=== PATIENT | male | born 1940 | race Caucasian/White ===

== ENCOUNTER 2023-11-11 14:36 | Emergency (ER) | payer OTHER, SELFPAY ==
[2023-11-11 14:43] VITALS: BP 149/56
[2023-11-11 15:02] LABS: % Basophils 0.8 % (0-2); % Eosinophils 11.7 % (0-6); % Immature Granulocytes 0.4 % (0-0.5); % Lymphocytes 21.2 % (20.5-51.1); % Monocytes 9.9 % (1.7-9.3); Absolute Basophils 0.1 10^3/uL (0-0.2); Absolute Eosinophils 0.9 10^3/uL (0-0.7); Absolute Lymphocytes 1.6 10^3/uL (1.2-3.4); Absolute Monocytes 0.8 10^3/uL (0.1-0.6); Absolute Neutrophils 4.3 10^3/uL (1.4-6.5); Hematocrit 31.7 % (39.0-52.0); Hemoglobin 11.2 g/dL (13.0-18.0); Mean Corp Hgb Conc. 35.3 g/dL (33.0-37.0); Mean Corpuscular Hgb 32.2 pg (27.0-31.0); Mean Corpuscular Volume 91.1 fL (80.0-94.0); Mean Platelet Volume 11.1 fL (7.4-10.4); Nucleated Red Blood Cells % 0 % (-); Platelet Count 153 10^3/uL (130-400); Red Blood Cell Count 3.48 10^6/uL (4.70-6.10); Red Cell Dist. Width 13.5 % (11.5-14.5); White Blood Cell Count 7.6 10^3/uL (4.8-10.8)
[2023-11-11 15:16] LABS: INR 1.04; PT 13.6 Sec (11.4-14.6)
[2023-11-11 15:45] VITALS: BMI 27.8
[2023-11-11 15:48] VITALS: BP 173/63
[2023-11-11 15:52] LABS: ALT (SGPT) 16 U/L (0-50); AST (SGOT) 30 U/L (17-59); Albumin 3.7 g/dl (3.5-5.0); Alkaline Phosphatase 90 U/L (38-126); Blood Urea Nitrogen 20 mg/dl (9-20); Calcium 9.2 mg/dl (8.4-10.2); Carbon Dioxide 19 mmol/L (22-30); Chloride 109 mmol/L (98-107); Estimated Creatinine Clearance 50 ml/min; Glucose 98 mg/dl (70-99); Potassium 4.5 mmol/L (3.5-5.1); Sodium 135 mmol/L (135-145); Total Bilirubin 0.6 mg/dl (0.2-1.3); Total Protein 6.1 g/dl (6.3-8.2); eGFR > 60.00
[2023-11-11 16:00] VITALS: BP 157/63
--- NOTE | 2023-11-11 16:09 | ED.GENMED ---
History of Present Illness
General
Chief Complaint: Breathing Problem
Source: patient
Time Seen by Provider: 11/11/23 15:45
History of Present Illness
History of Present Illness:
83-year-old male with past medical history of COPD, hypertension, hyperlipidemia, currently on Keytruda for lung cancer, history of PE (patient states this was from surgical procedure) presenting to the emergency department for evaluation at the
request of his him analyst for evaluation after for the last week patient has been experiencing left-sided chest pain with deep inspiration. Patient states that he also feels short of breath but notes that this is a chronic shortness of breath and
not any different than his usual and attributes this to his COPD. There are no other new symptoms including fevers or infectious symptoms, cough, hemoptysis, lower extremity edema or pain, orthopnea, PND or any other concerns. Patient has not
attempted any medications for relief. Notes that he will chronically wear oxygen at nighttime only.
Past History
Past History
ED Past Medical History: Cancer (Lung and skin), COPD, HTN, Hypercholesterolemia, Other (disc disease) and Other (Thoracic spine postop abscess with osteomyelitis, Sciatica, Headache, PNA, Sleep apnea, Palpitations, renal calculus, )
ED Past Surgical History: Orthopedic (Laminectomy), Urological (TURP) and Other (Deviated septum)
Patient has exhibited threatening behavior?: No
PSI?: No
Social History
Tobacco: Former smoker
Alcohol: None
Drug: None
Personal:
Living: with family
Employment: Retired
Family History
Family History: Other (Noncontributory)
Review of Systems
Review of Systems
All Other Systems: ROS reviewed and negative except as documented in HPI and ROS
Phy Exam
Physical Exam
Physical Exam:
GENERAL: Alert , in no apparent distress
EYE: conjunctiva clear
NECK: Supple
ENT: o/p clr, mmm.
CARDIAC: Regular rate and rhythm, systolic murmur at the left sternal border
LUNGS: Clear breath sounds bilaterally, no acute respiratory distress, no wheezes/rales/rhonchi
NEUROLOGICAL: Alert and oriented
SKIN: Warm and dry, skin intact.
MUSCULOSKELETAL: well perfused. No edema or tenderness to the lower extremities bilateral
PSYCH: Normal and appropriate interaction.
Scores
Heart Failure Risk
Heart Failure Risk Score: Not Applicable
Heart Score for Chest Pain Patients
STEMI patient?: No
History: Slightly or Non-Suspicious
ECG: Nonspecific Repolarization
Age: >/= 65 years
Risk Factors: 1 or 2 Risk Factors
Troponin: </= Normal Limit
Heart Score for Chest Pain Patients: 4
Heart Score Risk: 20.3% MACE over next 6 weeks
Withdrawal Assessment of Alcohol
Withdrawal Assessment Completed?: Not applicable
Course
Orders/Labs/Results
Orders:
Orders
11/11/23 14:45
Electrocardiogram (*1) Urgent
Reason for Study: Chest Pain
EKG- Treatment ONCE
11/11/23 14:51
Complete Blood Count/With Diff Urgent
Comprehensive Metabolic Panel Urgent
Prothrombin Time Urgent
Troponin I Routine
11/11/23 15:45
CT Chest Pe Study Urgent
Comment:
Reason For Exam: SOB, pleurisy
Abnormal Lab Results
11/11/23
14:51
RBC 3.48 L 10^6/uL
(4.70-6.10)
Hgb 11.2 L g/dL
(13.0-18.0)
Hct 31.7 L %
(39.0-52.0)
MCH 32.2 H pg
(27.0-31.0)
MPV 11.1 H fL
(7.4-10.4)
Absolute Monos (auto) 0.8 H 10^3/uL
(0.1-0.6)
Absolute Eos (auto) 0.9 H 10^3/uL
(0-0.7)
Monocytes % 9.9 H %
(1.7-9.3)
Eosinophils % 11.7 H %
(0-6)
Chloride 109 H mmol/L
(98-107)
Carbon Dioxide 19 L mmol/L
(22-30)
Total Protein 6.1 L g/dl
(6.3-8.2)
11/11/23 14:51
11/11/23 14:51
Vital Signs
Initial and Last Documented VS:
Initial Vital Signs
Temp Pulse Resp BP Pulse Ox
98.5 F 66 18 149/56 93
11/11/23 14:43 11/11/23 14:43 11/11/23 14:43 11/11/23 14:43 11/11/23 14:43
Last Documented Vital Signs
Temp Pulse Resp BP Pulse Ox
98.5 F 70 18 168/74 89
11/11/23 14:43 11/11/23 17:30 11/11/23 17:30 11/11/23 17:07 11/11/23 17:30
MDM/Problems Addressed
Differential Diagnosis Includes:
Pleurisy, PE, worsening COPD, pneumonia, atypical ACS presentation
MDM/Problems Addressed:
83-year-old male with multiple cardiopulmonary conditions as part of his past medical history presenting to the ER from his him analyst office for evaluation of continuous left-sided pleurisy for the last week. Patient notes chronic shortness of
breath secondary to what he reports is COPD and states that it is not any worse now than normal. He is hemodynamically stable, speaking in full sentences and in no acute respiratory distress. Labs were initiated in triage. CT scan of the chest
ordered. Patient's EKG is unchanged from last in February 2022.
Chronic conditions affecting care: COPD
*Radiology
Radiology exam reviewed: radiology read reviewed
*Pulse Oximetry
Patient hypoxic: no
*EKG
Interpreted by ED Provider?: Yes
Comparison EKG: no changes
Heart Rate: 70
Rate: normal
Rhythm: sinus
QRS Pattern: other (Bifascicular block)
*Underwriting Technician Interpretation
Rate: normal
Rhythm: sinus
*Critical Care Note
Total Time (30-74mins, 75-104mins- exclusive of procedures): Not Applicable
Data Reviewed
Review of Other/Old Records Reveals: Labs and Records
Patient Management
Escalation/DeEscalation of care consider admission/obs:
Patient CT shows the following:
IMPRESSION: Examination is negative for pulmonary embolism.
There is a focal masslike opacity in the anterior aspect of the left upper lobe lung, increased in size from previous examination, and suspicious for neoplasia/malignancy.
2 cm left adrenal gland mass which is new since examination 2021, and raises concern for ischemic disease.
Low-density hepatic lesions, most likely cysts, but not definitively characterize.
As warranted, consideration for further evaluation with PET/CT examination
I reviewed these findings with the patient and provided him with a printout of the report. Patient strongly encouraged to follow-up with his oncologist as soon as possible. Patient was aware of the adrenal gland mass and was scheduled to undergo
biopsy of this in the near future. I have attempted to contact both patient's him analyst who sent him to the ER as well as his oncologist and left messages with the answering service however no call was returned. Patient is stable for discharge
home and aware of return to the ER otherwise.
ED Attending Note
-
Portions of this chart may have been created with voice recognition software.� Occasional wrong word or��sound alike� substitutions may have occurred due to the inherent limitations of voice recognition software.
Discharge Plan
Departure
Patient Disposition: Home (Routine Discharge)
Date of Disposition: 11/11/23
Time of Disposition: 17:31
Patient with high blood pressure during this ER visit?: Yes
Discharge Problem:
Mass of left lung, Adrenal mass, left
Instructions: Lung cancer
Prescriptions:
No Action
multivitamin with folic acid [Tab-A-Cathleen] 1 TABLET tablet
1 tab PO QPM
finasteride 5 MG tablet
5 mg PO QPM
rosuvastatin 20 MG tablet
20 mg PO DAILY
hydralazine 25 MG tablet
50 mg PO TID
doxazosin 4 MG tablet
4 mg PO QPM
mirtazapine 15 MG tablet
15 mg PO HS
vitamin B complex Capsule
1 cap PO DAILY Qty: 0
omeprazole magnesium [Prilosec OTC] 20 MG tablet,delayed release (DR/EC)
20 mg PO DAILY
L.acidoph, paracasei,B. lactis 1 EACH capsule
1 ea PO DAILY
duloxetine 20 MG capsule,delayed release(DR/EC)
20 mg PO HS
cholecalciferol (vitamin D3) 1,000 UNITS tablet
1,000 units PO DAILY
potassium chloride 10 MEQ capsule, extended release
10 meq PO DAILY
Eliquis 5 MG tablet
2.5 mg PO BID 30 Days Qty: 30 0RF
ascorbic acid (vitamin C) [Vitamin C] 500 mg Tablet
500 mg PO DAILY
ferrous sulfate 325 mg (65 mg iron) Tablet
325 mg PO DAILY
montelukast [Singulair] 10 mg Tablet
10 mg PO DAILY
quinapril 20 mg Tablet
20 mg PO DAILY
Stiolto Respimat 2.5-2.5 mcg/actuation mist
2 inh INHALATION R DAILY
guaifenesin [Mucinex] 600 mg Tablet Extended Release 12hr
600 mg PO Q12 Qty: 30 0RF
azithromycin 250 mg Tablet
500 mg PO DAILY Qty: 3 0RF
prednisone 10 mg tablet
40 mg PO DAILY Qty: 30 0RF
Rx Instructions:
40mg for 3 days
30mg for 3 days
20mg for 3 days
10mg for 3 days and stop
levofloxacin 500 mg tablet
500 mg PO DAILY 9 Days Qty: 9 0RF
Referrals:
Dominic Yuan, DO [Family Provider] -
Interventions
Interventions:
*Risk Screen - Suicide Last Done: 11/11/23 14:43
*General Assessment Last Done: 11/11/23 14:43
*Neglect/Abuse Screening Last Done: 11/11/23 14:43
ED- Fall Risk Assessment Last Done: 11/11/23 16:02
*ED COVID-19 Vaccine History Last Done: 11/11/23 14:43
*Nursing Disposition Last Done: 11/11/23 17:56
ED- Cardiac Assessment Last Done: 11/11/23 16:02
ED- Pulmonary Assessment Last Done: 11/11/23 16:02
Discharge Date and Time
Discharge Date/Time: 11/11/23 17:59
Print Language: BELGIAN
[2023-11-11 16:32] LABS: Troponin I < 0.012 ng/ml
[2023-11-11 17:07] VITALS: BP 168/74
== END 2023-11-11 17:59 | disposition home or self-care (01) ==
LOC: EMR 14:36
PROVIDERS: EMERGENCY PHYSICIAN Emergency Medicine; FAMILY PHYSICIAN Internal Medicine
DX: R91.8 Other nonspecific abnormal finding of lung field (principal); E27.9 Disorder of adrenal gland, unspecified; J44.9 Chronic obstructive pulmonary disease, unspecified; I10 Essential (primary) hypertension; E78.00 Pure hypercholesterolemia, unspecified; Z86.711 Personal history of pulmonary embolism; G47.30 Sleep apnea, unspecified; C34.90 Malignant neoplasm of unspecified part of unspecified bronchus or lung; Z87.442 Personal history of urinary calculi; Z87.891 Personal history of nicotine dependence
CPT/HCPCS: 99284; 71275; 80053; 84484; 85025; 85610; 93005; Q9967

== ENCOUNTER → 2024-04-18 06:38 | Outpatient (REF) | payer OTHER, SELFPAY ==
[2024-04-18 10:20] LABS: ALT (SGPT) 17 U/L (0-50); AST (SGOT) 22 U/L (17-59); Albumin 3.1 g/dl (3.5-5.0); Alkaline Phosphatase 88 U/L (38-126); Blood Urea Nitrogen 16 mg/dl (9-20); Calcium 8.7 mg/dl (8.4-10.2); Carbon Dioxide 24 mmol/L (22-30); Chloride 103 mmol/L (98-107); Glucose 101 mg/dl (70-99); HDL Cholesterol 56 mg/dl; LDL Cholesterol, Calculated 66 mg/dl; Sodium 134 mmol/L (135-145); Total Cholesterol 142 mg/dl (50-199); Total Protein 5.5 g/dl (6.3-8.2); Triglyceride 101 mg/dl (10-149); Very Low Density Lipoprotein 20 mg/dl (0-30); eGFR > 60.00
[2024-04-18 10:49] LABS: TSH Reflex To Free T4 1.63 uIU/ml (0.47-4.68)
[2024-04-18 11:21] LABS: Glycohemoglobin (HgbA1c) 5.4 % (4.0-5.6)
== END ==
LOC: HWLAB 06:38
PROVIDERS: ATTENDING PHYSICIAN Internal Medicine
DX: E78.2 Mixed hyperlipidemia (principal); E03.8 Other specified hypothyroidism; R73.9 Hyperglycemia, unspecified
CPT/HCPCS: 36415; 80053; 80061; 83036; 84443

== ENCOUNTER → 2024-06-16 07:01 | Outpatient (REF) | payer OTHER, MEDICARE, SELFPAY | LOC: HWRCS 07:01 | PROVIDERS: ATTENDING PHYSICIAN Internal Medicine | DX: I11.9 Hypertensive heart disease without heart failure (principal); R60.0 Localized edema; C34.90 Malignant neoplasm of unspecified part of unspecified bronchus or lung | CPT/HCPCS: 93306; 93970 ==

== ENCOUNTER → 2024-07-04 06:59 | Outpatient (REF) | payer OTHER, SELFPAY ==
[2024-07-04 09:58] LABS: Albumin 2.6 g/dl (3.5-5.0); Blood Urea Nitrogen 19 mg/dl (9-20); Calcium 8.4 mg/dl (8.4-10.2); Carbon Dioxide 27 mmol/L (22-30); Chloride 108 mmol/L (98-107); Glucose 126 mg/dl (70-99); Phosphorus 2.9 mg/dl (2.5-4.5); Sodium 140 mmol/L (135-145); eGFR > 60.00
== END ==
LOC: HWLAB 06:59
PROVIDERS: ATTENDING PHYSICIAN Internal Medicine
DX: R60.0 Localized edema (principal)
CPT/HCPCS: 36415; 80069

== ENCOUNTER → 2024-11-18 06:14 | Outpatient (REF) | payer OTHER, SELFPAY ==
[2024-11-18 09:01] LABS: Hematocrit 37.3 % (39.0-52.0); Hemoglobin 12.3 g/dL (13.0-18.0); Mean Corp Hgb Conc. 33.0 g/dL (33.0-37.0); Mean Corpuscular Volume 96.9 fL (80.0-94.0); Nucleated Red Blood Cells % 0 % (-); Platelet Count 141 10^3/uL (130-400); Red Cell Dist. Width 13.0 % (11.5-14.5)
[2024-11-18 09:02] LABS: ALT (SGPT) 19 U/L (0-50); AST (SGOT) 21 U/L (17-59); Albumin 3.9 g/dl (3.5-5.0); Alkaline Phosphatase 86 U/L (38-126); Blood Urea Nitrogen 20 mg/dl (9-20); Calcium 9.5 mg/dl (8.4-10.2); Carbon Dioxide 28 mmol/L (22-30); Chloride 108 mmol/L (98-107); Glucose 83 mg/dl (70-99); HDL Cholesterol 58 mg/dl; LDL Cholesterol, Calculated 71 mg/dl; Potassium 4.5 mmol/L (3.5-5.1); Sodium 141 mmol/L (135-145); Total Protein 6.7 g/dl (6.3-8.2); Very Low Density Lipoprotein 15 mg/dl (0-30); eGFR > 60.00
[2024-11-18 09:18] LABS: Glycohemoglobin (HgbA1c) 5.5 % (4.0-5.6)
== END ==
LOC: HWLAB 06:14
PROVIDERS: ATTENDING PHYSICIAN Internal Medicine Cardiovascular Disease; FAMILY PHYSICIAN Internal Medicine
DX: E78.49 Other hyperlipidemia (principal); E78.2 Mixed hyperlipidemia; Z13.1 Encounter for screening for diabetes mellitus; I11.9 Hypertensive heart disease without heart failure
CPT/HCPCS: 36415; 80053; 80061; 83036; 85025

== ENCOUNTER → 2025-02-17 06:45 | Outpatient (REF) | payer OTHER, SELFPAY ==
[2025-02-17 10:10] LABS: Hematocrit 38.0 % (39.0-52.0); Hemoglobin 12.5 g/dL (13.0-18.0); Mean Corp Hgb Conc. 32.9 g/dL (33.0-37.0); Mean Corpuscular Volume 96.9 fL (80.0-94.0); Nucleated Red Blood Cells % 0 % (-); Platelet Count 160 10^3/uL (130-400); Red Cell Dist. Width 13.8 % (11.5-14.5)
[2025-02-17 10:23] LABS: ALT (SGPT) 20 U/L (0-50); AST (SGOT) 25 U/L (17-59); Albumin 4.0 g/dl (3.5-5.0); Alkaline Phosphatase 92 U/L (38-126); Blood Urea Nitrogen 18 mg/dl (9-20); Calcium 9.2 mg/dl (8.4-10.2); Carbon Dioxide 29 mmol/L (22-30); Chloride 105 mmol/L (98-107); Glucose 89 mg/dl (70-99); Potassium 4.4 mmol/L (3.5-5.1); Sodium 136 mmol/L (135-145); Total Protein 7.1 g/dl (6.3-8.2); eGFR > 60.00
[2025-02-17 11:38] LABS: Glycohemoglobin (HgbA1c) 5.5 % (4.0-5.9)
== END ==
LOC: HWLAB 06:45
PROVIDERS: ATTENDING PHYSICIAN Internal Medicine
DX: I11.9 Hypertensive heart disease without heart failure (principal); M54.50 Low back pain, unspecified; Z13.1 Encounter for screening for diabetes mellitus
CPT/HCPCS: 36415; 80053; 83036; 85025; 85652